=== PATIENT | female | born 1945 | race Caucasian/White ===

== ENCOUNTER 2023-10-03 11:42 | Emergency (ER) | payer MEDICARE, MEDICAID ==
[~2023-10-03] VITALS: Ht 165.1 cm; Wt 44.0 kg
[2023-10-03 11:49] VITALS: BP 117/78; PULSE 88; RESP 18; TEMP 98.3; O2SAT 99
[2023-10-03] MEDS ORDERED: TRAM50TA2 PO ×2 (13:27→13:53)
[2023-10-03] MEDS ORDERED: acetaminophen 325mg tablet PO ONE (14:30)
== END 2023-10-03 14:18 | disposition home or self-care (01) ==
LOC: ER 11:43
DX: M21.372 Foot drop, left foot (principal); M79.672 Pain in left foot; Z88.8 Allergy status to other drugs, medicaments and biological substances; Z79.899 Other long term (current) drug therapy
CPT/HCPCS: 73630; 99283; L4360